=== PATIENT | male | born 1985 | race American Indian/Alaskan Native ===

== ENCOUNTER 2016-11-08 10:27 | Emergency (ER) | payer MEDICAID ==
[2016-11-08 10:44] VITALS: BMI 22.1
[2016-11-08 10:47] VITALS: RESP 18; TEMP 98.2; O2SAT 98
--- NOTE | 2016-11-08 11:03 | ED PDOC ---
Arrival/HPI - General Chief Complaint: Lower Extremity Problem/Injury Time Seen by Provider: 11/08/16 10:50 Historian: Patient - History of Present Illness Narrative History of Present Illness (Text): 11/08/16 11:00 31yo male present with complaint of possible right 3rd toe infection. states toe has been itchy for the past one week and he noticed whitish purulent discharge from the skin this morning. He denies pain, states it feels uncomfortable. He denies fever, chills, SOB, any other complaint. Past Medical History - Provider Review Nursing Documentation Reviewed: Yes - Infectious Disease Hx of Infectious Diseases: None - Psychiatric Hx Substance Use: Yes (weed) - Anesthesia Hx Anesthesia: No Family/Social History - Physician Review Nursing Documentation Reviewed: Yes Family/Social History: Unknown Family HX Smoking Status: Never Smoked Hx Alcohol Use: Yes Frequency of alcohol use: Socially Hx Substance Use: Yes (weed) Allergies/Home Meds Allergies/Adverse Reactions: Allergies No Known Allergies Allergy (Verified 11/08/16 10:44) Review of Systems - Physician Review All systems were reviewed & negative as marked: Yes - Review of Systems Constitutional: Normal Eyes: Normal ENT: Normal Respiratory: Normal Cardiovascular: Normal Gastrointestinal: Normal Genitourinary Male: Normal Musculoskeletal: Normal Skin: Other (Right 3rd toe discharge/pain) Neurological: Normal Endocrine: Normal Hemo/Lymphatic: Normal Psychiatric: Normal Physical Exam Vital Signs Reviewed: Yes Vital Signs Temp Pulse Resp BP Pulse Ox 11/08/16 10:46 98.2 F 55 L 18 108/72 98 Temperature: Afebrile Blood Pressure: Normal Pulse: Regular Respiratory Rate: Normal Appearance: Positive for: Well-Appearing, Non-Toxic, Comfortable Pain Distress: None Mental Status: Positive for: Alert and Oriented X 3 - Systems Exam Head: Present: Atraumatic, Normocephalic Pupils: Present: PERRL Extroacular Muscles: Present: EOMI Conjunctiva: Present: Normal Mouth: Present: Moist Mucous Membranes Neck: Present: Normal Range of Motion Respiratory/Chest: Present: Clear to Auscultation, Good Air Exchange. No: Respiratory Distress, Accessory Muscle Use Cardiovascular: Present: Regular Rate and Rhythm, Normal S1, S2. No: Murmurs Abdomen: Present: Normal Bowel Sounds. No: Tenderness, Distention, Peritoneal Signs Back: Present: Normal Inspection Upper Extremity: Present: Normal Inspection. No: Cyanosis, Edema Lower Extremity: Present: Normal Inspection. No: Edema Neurological: Present: GCS=15, CN II-XII Intact, Speech Normal Skin: Present: Warm, Dry, Normal Color, Other (whitish scaly skin/patch noted on right 3rd toe. No erythema. No tenderness. No swelling). No: Rashes Psychiatric: Present: Alert, Oriented x 3, Normal Insight, Normal Concentration Medical Decision Making ED Course and Treatment: 11/08/16 11:04 Pt was afebrile in ED. Hemodynamically stable. He will be tx with Doxycycline secondary to the pt's report of purulent discharge. DC and referred to a x ray electronics wireman. TRT ED for any new or worsening symptoms. - Medication Orders Current Medication Orders: Doxycycline Hyclate (Doryx) 100 mg PO STAT STA PRN Reason: Protocol Stop: 11/08/16 11:00 Disposition/Present on Arrival - Present on Arrival Any Indicators Present on Arrival: No History of DVT/PE: No History of Uncontrolled Diabetes: No Urinary Catheter: No History of Decub. Ulcer: No History Surgical Site Infection Following: None - Disposition Have Diagnosis and Disposition been Completed?: Yes Diagnosis: Toe infection Disposition: HOME/ ROUTINE Disposition Time: 11:05 Patient Plan: Discharge Condition: STABLE Discharge Instructions (ExitCare): [place] (ED) Additional Instructions: Follow up with a Statistical Assistant Return to ED for any new or worsening symptoms Prescriptions: Doxycycline Hyclate 100 mg PO BID #[id number] cap Referrals: Idalmis Alejo DPM [Staff Provider] - Follow up with primary
[2016-11-08 11:36] VITALS: BP 110/75; PULSE 58
== END 2016-11-08 11:40 | disposition home or self-care (01) ==
LOC: ED 10:27
DX: L08.9 Local infection of the skin and subcutaneous tissue, unspecified (principal)